=== PATIENT | male | born 1970 | race Caucasian/White ===

== ENCOUNTER 2017-11-26 07:26 | Emergency (ER) | payer MEDICAID ==
[~2017-11-26] VITALS: Ht 170.2 cm; Wt 85.7 kg
[2017-11-26 08:00] VITALS: Ht 170.2 cm; Wt 85.7 kg
[2017-11-26 10:34] VITALS: BP 138/78
== END 2017-11-26 10:34 | disposition home or self-care (01) ==
LOC: ED 07:26
DX: J20.9 Acute bronchitis, unspecified (principal)